=== PATIENT | female | born 1975 | race Caucasian/White ===

== ENCOUNTER 2018-08-22 14:15 | Emergency (ER) | payer SELFPAY ==
[~2018-08-22] VITALS: Ht 170.2 cm; Wt 68.0 kg
[2018-08-22 14:16] VITALS: Ht 170.2 cm; Wt 68.0 kg
[2018-08-22] MEDS ORDERED: ACETAMINOPHEN 325 MG TAB PO ONE (18:30)
[2018-08-22] MEDS ORDERED: METHOCARBAMOL 750 MG TAB PO ONE (18:30)
[2018-08-22] MEDS ORDERED: IBUP-1542 PO (19:28)
[2018-08-22] MEDS ORDERED: METH750T93 PO (19:28)
[2018-08-22] MEDS ORDERED: ACET-141 PO (19:28)
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
[2018-08-22 19:54] VITALS: BP 114/75; PULSE 65; RESP 16
== END 2018-08-22 19:54 | disposition home or self-care (01) ==
LOC: FTE 14:15
DX: M54.5 Low back pain (principal)
CPT/HCPCS: 99282